=== PATIENT | female | born 1965 | race Hispanic/Latino ===

== ENCOUNTER 2020-06-07 16:04 | Inpatient (IN) | payer OTHER, SELFPAY ==
--- OUTSIDE RECORDS SUMMARY | 2020-06-07 16:07 | XMS REPORT | Continuity of Care Document ---
:1965 Author Organization [facility] t Address [address] [place] [address] Care Team Providers Name Role Phone Unavailable Unavailable Unavailable Problems This patient has no known problems. Allergies, Adverse Reactions, Alerts This patient has no known allergies or adverse reactions. Medications This patient has no known medications. Procedures This patient has no known procedures. Results Test Description Test Time Test Comments Results Result [facility] e Comments BREAST ULTRASOUND 2018-10-18 - DIAG MAMM BILATERAL BILATERAL 11:55:56 [place] CAD DIGITALBILATERAL DIGITAL DIAGNOSTIC MAMMOGRAM 3D/2D WITH CAD: 10/18/2018CLINICAL: Abnormal clinical breast exam. Digital breast tomosynthesis was performed in addition to routine CC and MLO views. Current mammographic images were evaluated by either a MagForce M-Vu or a [employer] ImageChecker CAD (computer aided detection system). No prior outside exams are currently available for comparison. The tissue of both breasts is heterogeneously dense. This may lower the sensitivity of mammography. There are benign calcifications in both breasts. There also is a benign intramammary node in the left breast. No suspicious mass, architectural distortion, malignant type calcification, or lymph node abnormality detected. INCOMPLETE ASSESSMENT: ADDITIONAL IMAGING EVALUATION RECOMMENDEDThere is no mammographic evidence of malignancy. An addendum will be issued if/when prior outside exams are made available for comparison.Ultrasound to follow.- BREAST ULTRASOUND BILATERALULTRASOUND OF BOTH BREASTS AND BOTH AXILLA: 10/18/2018No prior exams were available for comparison. Real-time ultrasound of the right breast and axilla and ultrasound of the left breast and axilla was performed. No abnormalities were seen sonographically in either axilla. No mass, focus of parenchymal distortion, or focus of abnormal posterior acoustic shadowing was imaged within either breast.There is slight retroareolar ductal prominence in the right breast. Mild duct dilatation is noted in the subareolar left breast. No intraductal mass or debris was imaged. IMPRESSION: BENIGN Benign findings. There is no sonographic evidence of malignancy. Resume annual screening mammography in one year. Yuriy Foster M.D. rb/:10/18/2018 11:55:56 Convention Planner: Amanda Geller [facility]-letter sent: BIRADS 1-2 Combo FU Letter Mammogram BI-RADS: 0 Indeterminate Ultrasound BI-RADS: 2 Benign DIAG MAMM 2018-10-18 - DIAG MAMM BILATERAL BILATERAL [place] CAD 11:55:56 [place] CAD DIGITAL DIGITALBILATERAL DIGITAL DIAGNOSTIC MAMMOGRAM 3D/2D WITH CAD: 10/18/2018CLINICAL: Abnormal clinical breast exam. Digital breast tomosynthesis was performed in addition to routine CC and MLO views. Current mammographic images were evaluated by either a [employer]Force M-Vu or a [employer] ImageChecker CAD (computer aided detection system). No prior outside exams are currently available for comparison. The tissue of both breasts is heterogeneously dense. This may lower the sensitivity of mammography. There are benign calcifications in both breasts. There also is a benign intramammary node in the left breast. No suspicious mass, architectural distortion, malignant type calcification, or lymph node abnormality detected. INCOMPLETE ASSESSMENT: ADDITIONAL IMAGING EVALUATION RECOMMENDEDThere is no mammographic evidence of malignancy. An addendum will be issued if/when prior outside exams are made available for comparison.Ultrasound to follow.- BREAST ULTRASOUND BILATERALULTRASOUND OF BOTH BREASTS AND BOTH AXILLA: 10/18/2018No prior exams were available for comparison. Real-time ultrasound of the right breast and axilla and ultrasound of the left breast and axilla was performed. No abnormalities were seen sonographically in either axilla. No mass, focus of parenchymal distortion, or focus of abnormal posterior acoustic shadowing was imaged within either breast.There is slight retroareolar ductal prominence in the right breast. Mild duct dilatation is noted in the subareolar left breast. No intraductal mass or debris was imaged. IMPRESSION: BENIGN Benign findings. There is no sonographic evidence of malignancy. Resume annual screening mammography in one year. Yuriy Foster M.D. rb/:10/18/2018 11:55:56 Convention Planner: Amanda Geller [facility]-FWletter sent: BIRADS 1-2 Combo FU Letter Mammogram BI-RADS: 0 Indeterminate Ultrasound BI-RADS: 2 Benign
[2020-06-07 16:44] LABS: Absolute Lymphocytes (CBC) 0.8 K/uL (0.7-4.9); Basophils % 0.4 % (0-1.3); Hematocrit 43.5 % (36.0-45.0); Lymphocytes % 7.6 % (15.3-44.8)
[2020-06-07 16:47] LABS: Protime INR 1.21
[2020-06-07] MEDS ORDERED: NA CHLORIDE 0.9% 250 ML ONE (16:54)
[2020-06-07] MEDS ORDERED: AZITHROMYCIN 500 MG INJ IVPB ONE (16:54)
[2020-06-07] MEDS ORDERED: CEFTRIAXONE/SWI 1gm 1 GM/10 ML SYR ONE (16:55)
[2020-06-07] MEDS ORDERED: NA CHLORIDE 0.9% 1,000 ML ONE (16:55)
--- NOTE | 2020-06-07 16:59 | ER ---
Nurse's Notes [facility] Name: Triny Juarez Age: 54 yrs Sex: Female : 1965 Arrival Date: 06/07/2020 Time: 16:13 Bed 2 Private MD: Alethea Chavez M Diagnosis: Dyspnea;Pneumonia due to other specified bacteria-bilateral focal;Hypoxemia;Fever, unspecified;SARS-associated coronavirus as the cause of diseases classified elsewhere Presentation: 06/07 16:14 Chief complaint: EMS states: pt POSITIVE COVID ON 05/30, PT CALLED EMS FOR SHORTNESS OF ls4 BREATH. PT IS TACHYCARDIC AND EMS STATES PT WAS 70 PERCENT ON ROOM AIR WHEN THEY ARRIVED ON SCENE. Coronavirus screen: Patient reports a cough. Patient reports shortness of breath or difficulty breathing. Patient denies measured and/or subjective temperature greater than 100.4F prior to today's visit. Patient denies travel on a cruise ship or to a country the [facility] currently lists as an affected area. Patient denies contact with known and/or suspected case of COVID-19. Patient instructed to continue to wear a mask when interacting with others. Patient moved to private room, placed in contact and droplet isolation with eye protection until further assessment. Prior COVID test collected on: 05/30 positive. Ebola Screen: No symptoms or risks identified at this time. Initial Sepsis Screen: Does the patient meet any 2 criteria? No. Patient's initial sepsis screen is negative. Does the patient have a suspected source of infection? No. Patient's initial sepsis screen is negative. Risk Assessment: Do you want to hurt yourself or someone else? Patient reports no desire to harm self or others. Onset of symptoms is unknown. 16:14 Method Of Arrival: EMS: [facility] ls4 16:14 Acuity: MAHESH 2 ls4 Triage Assessment: 16:18 General: Appears uncomfortable, Behavior is calm, cooperative. Pain:. Respiratory: ls4 Reports shortness of breath cough that is labored breathing Respiratory effort is labored, Respiratory pattern is regular, Onset: The symptoms/episode began/occurred gradually, the patient has severe shortness of breath. Historical: - Allergies: 16:18 No Known Allergies; ls4 - Home Meds: 16:18 None [Active]; ls4 - PMHx: 16:18 None; ls4 - PSHx: 16:18 Appendectomy; Cholecystectomy; Hysterectomy; ls4 - Immunization history:: Adult Immunizations up to date, Flu vaccine is not up to date. It has been more than one year since last vaccine. - Social history:: Smoking status: unknown. Screenin:28 Abuse screen: Denies threats or abuse. Denies injuries from another. Nutritional ls4 screening: No deficits noted. Tuberculosis screening: No symptoms or risk factors identified. Fall Risk None identified. Assessment: 16:43 General: Appears distressed, uncomfortable, obese, Behavior is calm, cooperative, bp appropriate for age. Pain: Complains of pain in back. Neuro: No deficits noted. Cardiovascular: Rhythm is SVT. Respiratory: Airway is patent Breath sounds are coarse bilaterally. GI: No signs and/or symptoms were reported involving the gastrointestinal system. : No signs and/or symptoms were reported regarding the genitourinary system. EENT: No deficits noted. Derm: No deficits noted. Musculoskeletal: No deficits noted. Vital Signs: 16:14 BP 163 / 91; Pulse 136; Resp 30; Temp 99.8(O); Pulse Ox 94% on R/A; Weight 82.55 kg; ls4 Height 5 ft. 4 in. (162.56 cm); Pain 5/10; 17:41 BP 146 / 90; Pulse 122; Resp 32; Pulse Ox 96% on 15% Non-rebreather mask; ls4 18:40 BP 156 / 98; Pulse 133; Resp 52; Temp 98.9(O); Pulse Ox 92% on 75% BiPAP; Pain 2/10; ls4 19:46 BP 140 / 85; Pulse 110; Temp 98.9; Pulse Ox 96% on BiPAP; mg2 16:14 Body Mass Index 31.24 (82.55 kg, 162.56 cm) ls4 ED Course: 16:13 Patient arrived in ED. ls4 16:14 Alethea Chavez MD is Private Physician. ls4 16:14 Alisia Giron, JHONNY is Primary Nurse. ls4 16:17 Triage completed. ls4 16:19 Arm band placed on right wrist. ls4 16:22 Romero Bunn MD is Attending Physician. [facility] 16:28 Patient has correct armband on for positive identification. Bed in low position. Call ls4 light in reach. Side rails up X 1. groundwater monitoring technician on. Pulse ox on. NIBP on. Verbal reassurance given. Diet: Patient is NPO. 16:28 No provider procedures requiring assistance completed. Patient maintains SpO2 ls4 saturation greater than 95% on room air. O2 via pt came in on nonrebreather, was at 100 per cent, trial room air pt is at 94 to 96 percent. 16:30 Initial lab(s) drawn, by [facility], sent to lab. First set of blood cultures drawn by , [facility] Second set of blood cultures drawn. 16:41 XRAY Chest (1 view) In Process Unspecified. EDMS 16:43 Primary Nurse role handed off by Alisia Giron, RN bp 16:43 Cosme Dominguez, RN is Primary Nurse. bp 16:43 Inserted saline lock: 18 gauge in right antecubital area, using aseptic technique. bp 16:43 EKG done, by ED staff, reviewed by Romero Bunn MD. ls4 16:57 Joe Carter MD is Hospitalizing Provider. elizabeth 16:58 Inserted saline lock: 22 gauge in right wrist, using aseptic technique. Blood collected.[facility] 16:59 Placed in gown. Side rails up X2. groundwater monitoring technician on. Pulse ox on. NIBP on. [facility] 17:01 Blood Culture Sent. 5 17:01 Procalcitonin Sent. 5 17:01 Lactate Sent. 5 17:01 Lactate Sent. [facility] 17:01 Procalcitonin Sent. [facility] 17:01 Blood Culture Adult (2) Sent. [facility] 17:01 Basic Metabolic Panel Sent. [facility] 17:01 LFT's Sent. [facility] 17:02 Magnesium Sent. [facility] 17:02 NT PRO-BNP Sent. [facility] 17:02 Troponin (emerg Dept Use Only) Sent. 5 Administered Medications: 16:55 Drug: NS 0.9% 1000 ml Route: IV; Rate: 125 ml/hr; Site: right forearm; ls4 17:10 Drug: Zithromax 500 mg Route: IVPB; Infused Over: 1 hrs; Site: right antecubital; ls4 17:10 Drug: Rocephin 1 grams Route: IV; Rate: per protocol; Site: right antecubital; ls4 17:10 Drug: SOLU-Medrol 125 mg Route: IVP; Site: right antecubital; ls4 17:10 Drug: Aspirin 162 mg Route: PO; ls4 17:10 Drug: Pepcid 20 mg Route: IVP; Site: right antecubital; ls4 17:10 Drug: Thiamine 100 mg Route: IV; Rate: 200 bolus; Site: right antecubital; ls4 19:46 Follow up: Response: No adverse reaction; IV Status: Completed infusion mg2 17:10 Drug: Tylenol 650 mg Route: PO; ls4 19:46 Follow up: Response: No adverse reaction mg2 17:20 Drug: Lovenox 80 mg Route: Sub-Q; Site: right lower abdomen; ls4 17:31 CANCELLED (Duplicate Order): NS 0.9% with KCl 20 mEq/L 1000 ml IV at 125 ml/hr elizabeth continuous 17:33 Drug: Potassium Effervescent Tablet 25 mEq Route: PO; ls4 19:46 Follow up: Response: No adverse reaction mg2 17:33 Drug: Potassium Chloride 20 mEq Route: IV; Rate: per protocol; Site: right antecubital; ls4 19:45 Follow up: Response: No adverse reaction; IV Status: Completed infusion mg2 18:10 Drug: Magnesium Sulfate 2 grams Route: IVPB; Infused Over: 2 hrs; Site: right ls4 antecubital; 18:24 Drug: NS 0.9% 500 ml Route: IV; Rate: bolus; Site: right antecubital; ls4 18:37 Follow up: IV Status: Completed infusion; IV Intake: 500ml ls4 18:50 Not Given (Duplicate Order): Potassium Chloride 20 mEq IV at per protocol once; elizabeth administer over 1-2 hours 18:54 CANCELLED (Duplicate Order): Ativan 0.5 mg IVP once ls4 18:54 CANCELLED (Duplicate Order): Ativan 0.5 mg IVP once ls4 18:55 Drug: Ativan 0.5 mg Route: IVP; Site: right antecubital; ls4 19:44 Follow up: Response: No adverse reaction mg2 18:55 Drug: NS 0.9% with KCl 20 mEq/L 1000 ml Route: IV; Rate: 125 ml/hr; Site: right ls4 antecubital; 19:44 Drug: Potassium Phosphate 15 mmol Route: IV; Rate: per protocol; Site: right hand; mg2 Intake: 18:37 IV: 500ml; Total: 500ml. ls4 Outcome: 16:59 Decision to Hospitalize by Provider. elizabeth 20:41 Patient left the ED. mg2 Signatures: Dispatcher [employer] EDRomero Garcia MD MD cha Martinez, Maria [facility] Cosme Dominguez RN RN Wili Jean RN RN mg2 Alisia Giron RN RN ls4 Corrections: (The following items were deleted from the chart) 18:22 16:14 Chief complaint: EMS states: pt POSITIVE COVID ON 05/30, PT CALLED EMS FOR ls4 SHORTNESS OF BREATH. PT IS TACHYCARDIC ls4
--- NOTE | 2020-06-07 16:59 | EDPHYS ---
Physician Documentation [facility] Name: Triny Juarez Age: 54 yrs Sex: Female : 1965 Arrival Date: 06/07/2020 Time: 16:13 Bed 2 Private MD: Alethea Chavez M ED Physician Romero Bunn HPI: 06/07 16:46 This 54 yrs old Female presents to ER via EMS with complaints of Shortness Of elizabeth Breath. 16:46 The patient has shortness of breath at rest, with light activity. Onset: The elizabeth symptoms/episode began/occurred 3 day(s) ago. Duration: The symptoms are continuous, and are steadily getting worse. The patient's shortness of breath is aggravated by coughing, exertion, light activity, supine position. Associated signs and symptoms: Pertinent positives: non-productive cough, fever. 16:47 The patient or guardian reports cough, difficulty breathing, flu symptoms, arthralgias, elizabeth low-grade fever, myalgias. Modifying factors: The symptoms are alleviated by nothing. the symptoms are aggravated by activity. Severity of symptoms: At their worst the symptoms were moderate in the emergency department the symptoms are unchanged. Associated signs and symptoms: Pertinent positives: rhinorrhea. Historical: - Allergies: 16:18 No Known Allergies; ls4 - Home Meds: 16:18 None [Active]; ls4 - PMHx: 16:18 None; ls4 - PSHx: 16:18 Appendectomy; Cholecystectomy; Hysterectomy; ls4 - Immunization history:: Adult Immunizations up to date, Flu vaccine is not up to date. It has been more than one year since last vaccine. - Social history:: Smoking status: unknown. ROS: 16:47 Eyes: Negative for injury, pain, redness, and discharge, ENT: Negative for injury, elizabeth pain, and discharge, Neck: Negative for injury, pain, and swelling, Abdomen/GI: Negative for abdominal pain, nausea, vomiting, diarrhea, and constipation, Back: Negative for injury and pain, : Negative for injury, bleeding, discharge, and swelling, MS/Extremity: Negative for injury and deformity, Skin: Negative for injury, rash, and discoloration, Neuro: Negative for headache, weakness, numbness, tingling, and seizure, Psych: Negative for depression, anxiety, suicide ideation, homicidal ideation, and hallucinations, Allergy/Immunology: Negative for hives, rash, and allergies, Endocrine: Negative for neck swelling, polydipsia, polyuria, polyphagia, and marked weight changes. 16:47 Constitutional: Positive for body aches, fatigue, fever, malaise. 16:47 Cardiovascular: Positive for palpitations. 16:47 Respiratory: Positive for cough, shortness of breath. Exam: 16:47 Constitutional: This is a well developed, well nourished patient who is awake, alert, elizabeth and in no acute distress. Head/Face: Normocephalic, atraumatic. Eyes: Pupils equal round and reactive to light, extra-ocular motions intact. Lids and lashes normal. Conjunctiva and sclera are non-icteric and not injected. Cornea within normal limits. Periorbital areas with no swelling, redness, or edema. ENT: Nares patent. No nasal discharge, no septal abnormalities noted. Tympanic membranes are normal and external auditory canals are clear. Oropharynx with no redness, swelling, or masses, exudates, or evidence of obstruction, uvula midline. Mucous membranes moist. Neck: Trachea midline, no thyromegaly or masses palpated, and no cervical lymphadenopathy. Supple, full range of motion without nuchal rigidity, or vertebral point tenderness. No Meningismus. Chest/axilla: Normal chest wall appearance and motion. Nontender with no deformity. No lesions are appreciated. Abdomen/GI: Soft, non-tender, with normal bowel sounds. No distension or tympany. No guarding or rebound. No evidence of tenderness throughout. Back: No spinal tenderness. No costovertebral tenderness. Full range of motion. Female : Normal external genitalia. Skin: Warm, dry with normal turgor. Normal color with no rashes, no lesions, and no evidence of cellulitis. MS/ Extremity: Pulses equal, no cyanosis. Neurovascular intact. Full, normal range of motion. Neuro: Awake and alert, GCS 15, oriented to person, place, time, and situation. Cranial nerves II-XII grossly intact. Motor strength 5/5 in all extremities. Sensory grossly intact. Cerebellar exam normal. Normal gait. Psych: Awake, alert, with orientation to person, place and time. Behavior, mood, and affect are within normal limits. 16:47 Cardiovascular: Rate: tachycardic, Rhythm: regular, Pulses: Pulses are 4+ in bilateral radial, brachial, femoral, popliteal, posterior tibial and and dorsalis pedis arteries.. Heart sounds: normal, Edema: is not appreciated, JVD: is not appreciated. 16:47 Respiratory: mild respiratory distress is noted, moderate respiratory distress is noted, Respirations: normal, no acute changes, Breath sounds: decreased breath sounds, rhonchi, Respiratory rate: 30 16:47 Musculoskeletal/extremity: DVT Exam: No signs of deep vein thrombosis. no pain, no swelling, no tenderness, negative Homans' sign noted on exam, no appreciated bluish discoloration, no erythema, no increased warmth. 17:01 ECG was reviewed by the Attending Physician. [facility] 17:49 ECG was reviewed by the Attending Physician. [facility] Vital Signs: 16:14 BP 163 / 91; Pulse 136; Resp 30; Temp 99.8(O); Pulse Ox 94% on R/A; Weight 82.55 kg; ls4 Height 5 ft. 4 in. (162.56 cm); Pain 5/10; 17:41 BP 146 / 90; Pulse 122; Resp 32; Pulse Ox 96% on 15% Non-rebreather mask; ls4 18:40 BP 156 / 98; Pulse 133; Resp 52; Temp 98.9(O); Pulse Ox 92% on 75% BiPAP; Pain 2/10; ls4 19:46 BP 140 / 85; Pulse 110; Temp 98.9; Pulse Ox 96% on BiPAP; mg2 16:14 Body Mass Index 31.24 (82.55 kg, 162.56 cm) ls4 MDM: 16:22 Patient medically screened. [facility] 16:50 Data reviewed: vital signs, nurses notes, lab test result(s), EKG, radiologic studies, [facility] plain films. 16:50 Differential diagnosis: Anxiety Reaction asthma, Bronchitis CHF exacerbation, Chronic elizabeth Obstructive Pulmonary Disease obstructed airway, flu, URI, pneumonia, pulmonary edema, reactive airway disease, Sepsis Unstable Angina. Antibiotic administration: Rocephin and Zithromax given. The patient's Wells Deep Vein Thrombosis Score was calculated as follows: Heart Rate >100 BPM (1.5 Pts) Imm/Surg in last 4 wks (1.5 Pts) Total Score: 3-6 Pts - Mod Risk. The patient's pulmonary embolism risk score was calculated as follows: the patients heart rate is greater than 100 beats per minute (1.5 Pts) patient has experienced immobilization or surgery in the last four weeks (1.5 Pts) Total Score: 3-6 points. This patient was found to be at moderate risk for a pulmonary embolism by using the Well's assessment criteria. Immunization status: Influenza vaccine: Data interpreted: logistics planning engineer: rate is 136 beats/min, Pulse oximetry: on 15% oxygen by non-rebreather, is 94 %. Test interpretation: by ED physician or midlevel provider: ECG, plain radiologic studies. Counseling: I had a detailed discussion with the patient and/or guardian regarding: the historical points, exam findings, and any diagnostic results supporting the discharge/admit diagnosis, the presence of at least one elevated blood pressure reading (>120/80) during this emergency department visit, lab results, radiology results, the need for further work-up and treatment in the hospital. ED course: pt without pain, pt improved. 06/07 16:20 Order name: Basic Metabolic Panel; Complete Time: 17:[address] [facility] 06/07 16:20 Order name: CBC with Diff [facility] 06/07 16:20 Order name: LFT's; Complete Time: 17:[address] [facility] 06/07 16:20 Order name: Magnesium; Complete Time: 17:[address] [facility] 06/07 16:20 Order name: NT PRO-BNP; Complete Time: 17:[address] [facility] 06/07 16:20 Order name: PT-INR; Complete Time: 16:[address] [facility] 06/07 16:20 Order name: Troponin (emerg Dept Use Only); Complete Time: 17:[address] [facility] 06/07 16:41 Order name: Blood Culture Adult (2) [facility] 06/07 16:41 Order name: Procalcitonin [facility] 06/07 16:41 Order name: Lactate [facility] 06/07 16:42 Order name: Blood Culture [facility] 06/07 16:42 Order name: Procalcitonin; Complete Time: 17:28 [facility] 06/07 16:42 Order name: Lactate; Complete Time: 17:55 [facility] 06/07 16:20 Order name: XRAY Chest (1 view); Complete Time: 17:[address] [facility] 06/07 17:20 Order name: Phosphorus; Complete Time: 17:30 [facility] 06/07 17:41 Order name: CT Chest For PE Angio [facility] 06/07 18:52 Order name: BIPAP [facility] 06/07 19:18 Order name: CT [facility] 06/07 19:51 Order name: CBC Smear Scan [facility] 06/07 20:29 Order name: Lactate Sepsis 2 HR Follow-up [facility] 06/07 16:20 Order name: EKG; Complete Time: 16:[address] [facility] 06/07 16:20 Order name: Cardiac monitoring; Complete Time: 16:[address] [facility] 06/07 16:20 Order name: EKG - Nurse/Tech; Complete Time: 16:[address] [facility] 06/07 16:20 Order name: IV Saline Lock; Complete Time: 16:[address] [facility] 06/07 16:20 Order name: Labs collected and sent; Complete Time: 16:[address] [facility] 06/07 16:20 Order name: O2 Per Protocol; Complete Time: 16:[address] [facility] 06/07 16:20 Order name: O2 Sat Monitoring; Complete Time: 16:[address] [facility] 06/07 17:32 Order name: EKG; Complete Time: 17:32 [facility] 06/07 17:32 Order name: EKG - Nurse/Tech; Complete Time: 17:58 [facility] EC:01 Rate is 133 beats/min. Rhythm is regular. QRS [place] is Normal. [place] interval is normal. [facility] QRS interval is normal. QT interval is normal. No Q waves. T waves are Normal. Clinical impression: Sinus tachycardia. Interpreted by me. Reviewed by me. 17:49 Rate is 118 beats/min. Rhythm is regular. QRS [place] is Normal. [place] interval is normal. [facility] QRS interval is normal. QT interval is normal. No Q waves. T waves are Normal. No ST changes noted. Clinical impression: NSR w/ Non-specific ST/T Changes and No evidence of ischemia. Interpreted by me. Reviewed by me. Administered Medications: 16:55 Drug: NS 0.9% 1000 ml Route: IV; Rate: 125 ml/hr; Site: right forearm; ls4 17:10 Drug: Zithromax 500 mg Route: IVPB; Infused Over: 1 hrs; Site: right antecubital; ls4 17:10 Drug: Rocephin 1 grams Route: IV; Rate: per protocol; Site: right antecubital; ls4 17:10 Drug: SOLU-Medrol 125 mg Route: IVP; Site: right antecubital; ls4 17:10 Drug: Aspirin 162 mg Route: PO; ls4 17:10 Drug: Pepcid 20 mg Route: IVP; Site: right antecubital; ls4 17:10 Drug: Thiamine 100 mg Route: IV; Rate: 200 bolus; Site: right antecubital; ls4 19:46 Follow up: Response: No adverse reaction; IV Status: Completed infusion mg2 17:10 Drug: Tylenol 650 mg Route: PO; ls4 19:46 Follow up: Response: No adverse reaction mg2 17:20 Drug: Lovenox 80 mg Route: Sub-Q; Site: right lower abdomen; ls4 17:31 CANCELLED (Duplicate Order): NS 0.9% with KCl 20 mEq/L 1000 ml IV at 125 ml/hr elizabeth continuous 17:33 Drug: Potassium Effervescent Tablet 25 mEq Route: PO; ls4 19:46 Follow up: Response: No adverse reaction mg2 17:33 Drug: Potassium Chloride 20 mEq Route: IV; Rate: per protocol; Site: right antecubital; ls4 19:45 Follow up: Response: No adverse reaction; IV Status: Completed infusion mg2 18:10 Drug: Magnesium Sulfate 2 grams Route: IVPB; Infused Over: 2 hrs; Site: right ls4 antecubital; 18:24 Drug: NS 0.9% 500 ml Route: IV; Rate: bolus; Site: right antecubital; ls4 18:37 Follow up: IV Status: Completed infusion; IV Intake: 500ml ls4 18:50 Not Given (Duplicate Order): Potassium Chloride 20 mEq IV at per protocol once; elizabeth administer over 1-2 hours 18:54 CANCELLED (Duplicate Order): Ativan 0.5 mg IVP once ls4 18:54 CANCELLED (Duplicate Order): Ativan 0.5 mg IVP once ls4 18:55 Drug: Ativan 0.5 mg Route: IVP; Site: right antecubital; ls4 19:44 Follow up: Response: No adverse reaction mg2 18:55 Drug: NS 0.9% with KCl 20 mEq/L 1000 ml Route: IV; Rate: 125 ml/hr; Site: right ls4 antecubital; 19:44 Drug: Potassium Phosphate 15 mmol Route: IV; Rate: per protocol; Site: right hand; mg2 Disposition: 06/07/20 16:59 Hospitalization ordered by Joe Carter for Inpatient Admission. Preliminary diagnosis are Dyspnea, Pneumonia due to other specified bacteria - bilateral focal, Hypoxemia, Fever, unspecified, SARS-associated coronavirus as the cause of diseases classified elsewhere. - Bed requested for Telemetry/MedSurg (Inpatient). - Status is Inpatient Admission. mg2 - Condition is Fair. - Problem is new. - Symptoms have improved. Signatures: Dispatcher [employer] EDMI Romero Bunn MD MD cha Attema, Lee, PLANNING AND ANALYSIS MANAGER-C PLANNING AND ANALYSIS MANAGER-Cla1 Shereen Lopez, JHONNY RN cg Wili Chowdary RN RN mg2 Alisia Giron RN RN ls4 Corrections: (The following items were deleted from the chart) 17:21 17:19 PHOSPHORUS+C.LAB.BRZ ordered. [facility] 17:31 17:19 NS 0.9% with KCl 20 mEq/L 1000 ml IV at 125 ml/hr continuous ordered. elizabeth elizabeth 18:54 18:51 Ativan 0.5 mg IVP once ordered. ls4 ls4 18:54 18:54 Ativan 0.5 mg IVP once ordered. ls4 ls4 19:26 16:59 Hospitalization Ordered by Joe Carter MD for Inpatient Admission. cg Preliminary diagnosis is Dyspnea; Pneumonia due to other specified bacteria - bilateral focal; Hypoxemia; Fever, unspecified; SARS-associated coronavirus as the cause of diseases classified elsewhere. Bed requested for Telemetry/MedSurg (Inpatient). Status is Inpatient Admission. Condition is Fair. Problem is new. Symptoms have improved. elizabeth 20:41 19:26 06/07/2020 16:59 Hospitalization Ordered by Joe Carter MD for Inpatient mg2 Admission. Preliminary diagnosis is Dyspnea; Pneumonia due to other specified bacteria - bilateral focal; Hypoxemia; Fever, unspecified; SARS-associated coronavirus as the cause of diseases classified elsewhere. Bed requested for Telemetry/MedSurg (Inpatient). Status is Inpatient Admission. Condition is Fair. Problem is new. Symptoms have improved. cg
[2020-06-07 17:10] LABS: ALT/SGPT 30 U/L (12-78); AST/SGOT 43 U/L (15-37); Albumin 2.5 g/dL (3.4-5.0); Alkaline Phosphatase 89 U/L (45-117); BUN Blood Urea Nitrogen 10 mg/dL (7-18); Bicarbonate 18 mmol/L (21-32); Bilirubin Direct 0.3 mg/dL (0-0.2); Glucose Level 107 mg/dL (74-106); Magnesium 2.3 mg/dL (1.8-2.4); NT PRO-BNP 699 pg/mL (<125); Protein, Total 7.7 g/dL (6.4-8.2); Sodium Level 142 mmol/L (136-145)
[2020-06-07 17:11] LABS: Potassium 2.5 mmol/L (3.5-5.1); Troponin (Emerg Dept Use Only) 0.85 ng/mL (0.0-0.045)
[2020-06-07] MEDS ORDERED: ACETAMINOPHEN 325 MG TABLET ONE (17:12)
[2020-06-07] MEDS ORDERED: THIAMINE 200 MG/2 ML INJ ONE (17:12)
[2020-06-07] MEDS ORDERED: ASPIRIN 81 MG CHEWABLE TABLET ONE (17:12)
[2020-06-07] MEDS ORDERED: FAMOTIDINE 20 MG/2 ML VIAL IV ONE (17:13)
[2020-06-07] MEDS ORDERED: Magnesium Sulfate 2gm IVPB 2 G/50 ML BAG IV ONE (17:13)
[2020-06-07] MEDS ORDERED: ENOXAPARIN 80 MG/0.8 ML SQ ONE (17:13)
[2020-06-07] MEDS ORDERED: METHYLPREDNISOLONE 125 MG INJ ONE (17:19)
[2020-06-07 17:30] LABS: Phosphorus 1.9 mg/dL (2.5-4.9)
--- NOTE | 2020-06-07 17:32 | RAD REPORT ---
EXAM DESCRIPTION: Jose Single View06/07/2020 4:41 pm CLINICAL HISTORY: sob COMPARISON: none FINDINGS: Mild bilateral pulmonary opacities The heart is normal size IMPRESSION: Mild bilateral pulmonary opacities probably pneumonia
[2020-06-07] MEDS ORDERED: POTASSIUM CL SA 10 MEQ TAB PO ONE (17:34)
[2020-06-07] MEDS ORDERED: NS KCL 20MEQ 1,000 ML IV ONE (17:35)
[2020-06-07] MEDS ORDERED: KCL 20 MEQ/100 mL IVPB 20 MEQ/100 ML BAG IV ONE (17:35)
[2020-06-07] MEDS ORDERED: POTASSIUM 25 MEQ EFFERV TAB ONE (17:56)
--- NOTE | 2020-06-07 18:50 | P.HP ---
Certification for Inpatient Patient admitted to: Inpatient With expected LOS: >2 Midnights Patient will require the following post-hospital care: None Practitioner: I am a practitioner with admitting privileges, knowledge of patient current condition, hospital course, and medical plan of care. Services: Services provided to patient in accordance with Admission requirements found in Title 42 Section 412.3 of the Code of Federal Regulations Patient History Date of Service: 06/07/20 Reason for admission: Acute respiratory failure, COVID History of Present Illness: 54-year-old female with no past medical history presents the emergency department for shortness of breath. Patient reports that she has been feeling ill since approximately 16 of May. Patient reports for the last 3-4 days she has been feeling very short of breath and especially today. EMS was called and patient was found to be around 80% on room air on scene. Patient placed on non- rebreather transport to the emergency department where she is evaluated. During her evaluation in the emergency department patient was found to be tachypneic with respiratory rate in the 50s. Patient placed on BiPAP all the emergency department. Patient found to have elevated troponin at 0.84, this was discussed with cardiology who did not believe this is ischemic. Patient having CT PE protocol while she is in the emergency department. Will admit for further evaluation management. Allergies No Known Allergies Allergy (Verified 03/28/16 14:52) Home Medications: Estradiol 2 mg PO DAILY 03/28/16 Progesterone,Micronized [Prometrium] 200 mg PO BEDTIME 03/28/16 - Past Medical/Surgical History -: None -: appendectomy -: Cholecystectomy -: Hysterectomy Psychosocial/ Personal History: Patient lives at home with the family. - Family History Family History: Reviewed- Non-Contributory - Social History Smoking Status: Never smoker Alcohol use: No CD- Drugs: No Caffeine use: No Place of Residence: Home Review of Systems 10-point ROS is otherwise unremarkable Respiratory: Cough, Dry, Shortness of Breath Physical Examination - Physical Exam General: Alert, In no apparent distress, Oriented x3 HEENT: Atraumatic, Normocephalic, PERRLA Neck: Supple Respiratory: Diminished, Crackles/rales, Other (Tachypneic/dyspnea) Cardiovascular: Normal pulses, Regular rate/rhythm, Normal S1 S2 Capillary refill: <2 Seconds Gastrointestinal: Normal bowel sounds, Soft and benign Musculoskeletal: No contractures, No erythema, No tenderness Integumentary: No significant lesion, No tenderness/swelling, No erythema Neurological: Normal speech, Normal strength at 5/5 x4 extr, Normal tone, Sensation intact - Studies Laboratory Data (last 24 hrs) 06/07/20 17:19: Phosphorus Cancelled 06/07/20 16:15: PT 14.2 H, INR 1.21 06/07/20 16:15: WBC 10.5, Hgb 14.8, Hct 43.5, Plt Count 263 06/07/20 16:15: Sodium 142, Potassium 2.5 L*, BUN 10, Creatinine 0.66, Glucose 107 H, Phosphorus 1.9 L, Magnesium 2.3, Total Bilirubin 1.0, AST 43 H, ALT 30, Alkaline Phosphatase 89 Assessment and Plan - Plan Assessment Acute respiratory failure with hypoxia secondary to COVID pneumonia Plan Acute respiratory failure with hypoxia secondary to COVID pneumonia: Patient p laced on BiPAP on the emergency department, continue with MATH protocol, pulmonology consulted to assist with care. Will continue with full anticoagulation with Lovenox. Anticipate clinical improvement in the next 48 to 72 hours. Patient very tachypneic while in the ED, hopefully she will improve with Bipap. Will load with steroids and supplements. Will upgrade to ICU if necessary. Discharge Plan: Home Plan to discharge in: Greater than 2 days - Advance Directives Does patient have a Living Will: No Does patient have a Durable POA for Healthcare: No - Code Status/Comfort Care Code Status Assessed: Yes (Patient is full code) Critical Care: No Time Spent Managing Pts Care (In Minutes): 55
[2020-06-07] MEDS ORDERED: LORazepam 2 MG/ML VIAL ONE (18:59)
[2020-06-07] MEDS ORDERED: POTASSIUM PHOS IN 0.9 % NACL 15 MMOL/250 ML BAG IV ONE (19:04)
--- NOTE | 2020-06-07 19:17 | RAD REPORT ---
EXAM DESCRIPTION: CT - Chest For Pe Angio - 06/07/2020 7:02 pm CLINICAL HISTORY: Chest pain COMPARISON: None. TECHNIQUE: Dynamically enhanced axial 3 mm thick images of the chest were obtained during administra tion of <100> mL Isovue 370 IV contrast. Coronal and oblique reconstruction images were generated and reviewed. Exam utilizes a protocol for optimal evaluation of pulmonary arterial tree. Maximum intensity projections 3D imaging was utilized All CT scans are performed using dose optimization technique as appropriate and may include automated exposure control or mA/KV adjustment according to patient size. FINDINGS: A pulmonary embolus is not seen. A thoracic aortic aneurysm is not noted. A pleural effusion is not seen. A pericardial effusion is not seen. Moderate ground-glass opacities within the lungs. Mild lower lobe consolidation IMPRESSION: Negative for a pulmonary embolism. Moderate ground-glass opacities within the lungs probably Covid pneumonia
[2020-06-07 19:51] LABS: Anisocytosis 1+; Blood Morphology Comment NOTED (NOT SEEN); Platelet Estimate ADEQ; Poikilocytosis 1+; Urine White Blood Cell Casts OK
[2020-06-07] MEDS ORDERED: ONDANSETRON 4 MG/2 ML VIAL IV PRN (20:56)
[2020-06-07] MEDS ORDERED: ACETAMINOPHEN 500 MG TAB PO PRN (20:56)
[2020-06-07] MEDS: METHYLPREDNISOLONE 40 MG INJ IV SCH (21:00)
[2020-06-07] MEDS: MELATONIN 3 MG TABLET PO SCH (21:45)
[2020-06-07] MEDS: ASCORBIC ACID 500 MG TABLET PO SCH (21:45)
[2020-06-08 00:05] VITALS: BMI 31.2
[2020-06-08] MEDS: ENOXAPARIN 80 MG/0.8 ML SQ SCH ×2 (04:09→16:16)
[2020-06-08 04:42] LABS: Urine Appearance CLEAR; Urine Blood 2+ (NEG); Urine Color DK YELLOW; Urine Glucose NEGATIVE (NEG); Urine Protein 2+ (NEG); Urine Specific Gravity >=1.030 (1.005-1.030); Urine Urobilinogen 0.2 mg/dL (0.2-1.0)
[2020-06-08 04:47] LABS: Urine Bilirubin NEGATIVE (NEG); Urine Microscopic Reflex ORDER UMIC
[2020-06-08 05:07] LABS: Urine Bacteria <20 /HPF (<20); Urine Culture Reflex Order NOT NEEDED; Urine RBC <5 /HPF (NONE SEEN)
[2020-06-08 05:54] LABS: Absolute Lymphocytes (CBC) 0.4 K/uL (0.7-4.9); Basophils % 0.2 % (0-1.3); Hematocrit 41.3 % (36.0-45.0); MPV 7.9 fL (7.6-11.3); RBC Red Blood Cell Count 4.59 M/uL (3.86-4.86)
[2020-06-08 06:15] LABS: BUN Blood Urea Nitrogen 14 mg/dL (7-18); Bicarbonate 18 mmol/L (21-32); Ferritin 905.8 ng/mL (8-388); Glucose Level 142 mg/dL (74-106); HDL Cholesterol 30 mg/dL (40-60); LDL Cholesterol, Calculated 70 (<130); Phosphorus 2.6 mg/dL (2.5-4.9); Potassium 3.5 mmol/L (3.5-5.1); Sodium Level 145 mmol/L (136-145); Thyroid Stimulating Hormone 0.813 uIU/mL (0.360-3.740)
[2020-06-08] MEDS ORDERED: POTASSIUM CL SA 10 MEQ TAB PO ONE (07:00)
[2020-06-08] MEDS: VITAMIN D 1000 UNIT TAB PO SCH (07:45)
[2020-06-08] MEDS: METHYLPREDNISOLONE 40 MG INJ IV SCH ×2 (07:45→19:36)
[2020-06-08] MEDS: THIAMINE 200 MG/2 ML INJ IVP SCH (07:45)
[2020-06-08] MEDS: ASCORBIC ACID 500 MG TABLET PO SCH ×3 (07:45→19:37)
[2020-06-08] MEDS: ZINC SULFATE 220 MG CAP PO SCH (07:47)
[2020-06-08] MEDS ORDERED: FUROSEMIDE 20 MG TABLET PO SCH (09:00)
--- NOTE | 2020-06-08 10:51 | P.PN ---
Subjective Date of Service: 06/08/20 Chief Complaint: Acute respiratory failure, COVID Subjective: Improving <Johnathan Pritchard - Last Filed: 06/08/20 10:52> Date of Service: 06/08/20 <Dread Barney - Last Filed: 06/08/20 15:20> Review of Systems Respiratory: Shortness of Breath <Johnathan Pritchard - Last Filed: 06/08/20 10:52> Physical Examination - Vital Signs Temperature: 97.0 F Blood Pressure: 152/96 Pulse: 108 Respirations: 49 Pulse Ox (%): 94 - Physical Exam General: Alert, In no apparent distress, Oriented x3 HEENT: Atraumatic, Normocephalic Neck: Supple Respiratory: Other (Coarse bilaterally with significant tachypnea) Cardiovascular: No edema, Normal pulses, Normal S1 S2 Capillary refill: <2 Seconds Gastrointestinal: Normal bowel sounds, Soft and benign Musculoskeletal: No contractures, No erythema Integumentary: No tenderness/swelling, No erythema, No warmth Neurological: Normal gait, Normal speech, Normal tone - Studies Laboratory Data (last 24 hrs) 06/07/20 17:19: Phosphorus Cancelled 06/07/20 16:15: PT 14.2 H, INR 1.21 06/07/20 16:15: WBC 10.5, Hgb 14.8, Hct 43.5, Plt Count 263 06/07/20 16:15: Sodium 142, Potassium 2.5 L*, BUN 10, Creatinine 0.66, Glucose 107 H, Phosphorus 1.9 L, Magnesium 2.3, Total Bilirubin 1.0, AST 43 H, ALT 30, Alkaline Phosphatase 89 <Johnathan Pritchard - Last Filed: 06/08/20 10:52> - Studies Laboratory Data (last 24 hrs) 06/07/20 17:19: Phosphorus Cancelled 06/07/20 16:15: PT 14.2 H, INR 1.21 06/07/20 16:15: WBC 10.5, Hgb 14.8, Hct 43.5, Plt Count 263 06/07/20 16:15: Sodium 142, Potassium 2.5 L*, BUN 10, Creatinine 0.66, Glucose 107 H, Phosphorus 1.9 L, Magnesium 2.3, Total Bilirubin 1.0, AST 43 H, ALT 30, Alkaline Phosphatase 89 <Dread Barney - Last Filed: 06/08/20 15:20> Assessment & Plan Discharge Plan: Home Plan to discharge in: Greater than 2 days - Code Status/Comfort Care Code Status Assessed: Yes (Patient is full code) Physician Review Additional Text: Assessment Acute respiratory failure with hypoxia secondary to COVID pneumonia Elevated troponin level Hypophosphatemia Hypokalemia Plan Acute respiratory failure with hypoxia secondary to COVID pneumonia: Patient placed on BiPAP and is doing well with this, continue with MATH protocol, pulmonology consulted to assist with care. Will continue with full anticoagulation with Lovenox. Anticipate clinical improvement in the next 48 to 72 hours. Continue steroids, supplements, cardiology recommends adding aspirin 81 mg once daily. Elevated troponin level: Cardiology has been consulted and seen patient, recommend echo at this time, trop peaked and is coming down. Patient is chest pain free. Plan will be for possible angiogram once she is more stable. Will also add statin. Hypophosphatemia: Phosphate protocol and place Hypokalemia: Potassium protocol in place Critical Care: No Time Spent Managing Pts Care (In Minutes): 55 <Johnathan Pritchard - Last Filed: 06/08/20 10:52> Physician Review Additional Text: Patient was seen and examined and findings were discussed Agree with the assessment and plan as documented by the BERNY <Dread Barney - Last Filed: 06/08/20 15:20>
--- NOTE | 2020-06-08 13:00 | CON ---
Date of Consultation: 06/08/2020 Reason For Consultation: Elevated troponin. History Of Present Illness: This is a 54-year-old female, no medical history, presented with shortne ss of breath, cough since the beginning of this month. Symptoms worsened about 3 to 4 days prior to admission with significant shortness of breath. By EMS, she was found to be saturating 80% on room a ir and on non-rebreather the patient felt much better, and she was admitted, found to be positive for COVID-19, started on BiPAP and did well. Past Medical History: None. Medications: None. Allergies: NO KNOWN DRUG ALLERGIES. Past Surgical History: Appendectomy, cholecystectomy, hysterectomy. Social History: Does not smoke or drink. Does not use any drugs. Family History: No mention of coronary artery disease or cancer. Review of Systems: All systems reviewed and they were negative except for mentioned in the HPI. Physical Examination: Vital Signs: Temperature 97.0, pulse 108, breathing at 18, blood pressure is 152/96, saturating 95% with nasal cannula. General: This is a middle-aged female, pleasant, no distress. Head and Neck: Pupils are equal, react to light. Intact eye movements. No JVD. No cervical. Neck: Supple. Thyroid is not enlarged. Lungs: Rhonchi bilaterally. No accessory muscle use or muscle retraction. Heart: Regular rate and rhythm. No extra sounds. Abdomen: Soft, nontender. Bowel sounds positive. No organomegaly. No masses or hernia. No rigidi ty or rebound. Extremities: No edema, clubbing, cyanosis. Intact pulses. Skin: No rashes. Neurologic: Alert, awake, oriented x3. No acute focal deficits appreciated. Lymph nodes: No cervical, axillary lymphadenopathy. Investigations: Sodium 145, creatinine is 0.62. Troponin peaked at 2.17, now down to 1.98. Lactic acid was 2.3 and then 1.9. White blood cell count 6.3, hemoglobin 14, platelet count 227. Assessment And Plan: 1.Elevated troponin suggestive of non-elevation myocardial infarction. However, this could be relat ed to COVID-19 and demand ischemia plus possibility of mild myocarditis. However, at this point, I w ill recommend baby aspirin 81 mg daily and oxygen therapy and full anticoagulation with Lovenox 1 mg/ kg subcu q.12 hours and obtain echocardiogram with the tentative plan to do coronary angiogram once t he patient's condition is more stable. 2.COVID-19 induced pneumonia, on the proper therapy. Continue current management as per armida ALANIS Voice ID: [id number] Report ID: [id number]
[2020-06-08] MEDS: MELATONIN 3 MG TABLET PO SCH (19:37)
[2020-06-08] MEDS ORDERED: ATORVASTATIN 40 MG TAB PO SCH (21:00)
[2020-06-09] MEDS ORDERED: AZITHROMYCIN IV 500 MG in NA CHLORIDE 0.9% 250 ML IVPB ONE (01:48)
[2020-06-09] MEDS ORDERED: ALBUMIN HUMAN 25% 50 ML IV ONE (01:49)
[2020-06-09] MEDS ORDERED: ALBUTEROL INHALER 60 PUFF/8 GM IH PRN (01:50)
[2020-06-09] MEDS: FUROSEMIDE 40 MG/4 ML VIAL IV SCH ×3 (02:40→16:00)
[2020-06-09] MEDS: dexAMETHasone 10 MG/ML VIAL IV SCH ×2 (02:40→06:10)
[2020-06-09] MEDS ORDERED: NA CHLORIDE 0.9% 250 ML ONE (02:47)
[2020-06-09] MEDS: ENOXAPARIN 80 MG/0.8 ML SQ SCH ×2 (03:44→16:01)
[2020-06-09] MEDS ORDERED: AZITHROMYCIN 500 MG INJ IVPB ONE (03:50)
[2020-06-09 05:12] LABS: Absolute Lymphocytes (CBC) 0.5 K/uL (0.7-4.9); Basophils % 0.1 % (0-1.3); Hematocrit 39.4 % (36.0-45.0); Lymphocytes % 5.2 % (15.3-44.8); MPV 8.3 fL (7.6-11.3); RBC Red Blood Cell Count 4.49 M/uL (3.86-4.86)
[2020-06-09 05:26] LABS: Magnesium 2.4 mg/dL (1.8-2.4)
[2020-06-09 05:30] LABS: BUN Blood Urea Nitrogen 19 mg/dL (7-18); Bicarbonate 22 mmol/L (21-32); Ferritin 804.4 ng/mL (8-388); Glucose Level 139 mg/dL (74-106); Phosphorus 2.2 mg/dL (2.5-4.9); Potassium 3.2 mmol/L (3.5-5.1); Sodium Level 143 mmol/L (136-145)
[2020-06-09] MEDS: ASPIRIN EC 81 MG TAB PO SCH (08:06)
[2020-06-09] MEDS: ASCORBIC ACID 500 MG TABLET PO SCH ×3 (08:06→21:14)
[2020-06-09] MEDS: ZINC SULFATE 220 MG CAP PO SCH (08:06)
[2020-06-09] MEDS: POTASS/SODIUM PHOSPHATE 1 PKT POWD.PACK PO SCH ×3 (08:06→09:43)
[2020-06-09] MEDS: THIAMINE 200 MG/2 ML INJ IVP SCH ×2 (08:08→21:14)
[2020-06-09] MEDS: VITAMIN D 1000 UNIT TAB PO SCH (08:11)
--- NOTE | 2020-06-09 08:12 | ECHO ---
HEIGHT: 5 ft 4 in WEIGHT: 182 lb 0 oz DATE OF STUDY: 06/08/[address]: Johnathan Pritchard NP 2-DIMENSIONAL: YES M.MODE: YES DOPPLER: YES COLOR FLOW: YES TDS: NO PORTABLE: NO DEFINITY: NO BUBBLE STUDY: NO DIAGNOSIS: ELEVATED TROPONIN CARDIAC HISTORY: CATHERIZATION: NO SURGERY: NO PROSTHETIC VALVE: NO PACEMAKER: NO MEASUREMENTS (cm) DIASTOLIC (NORMALS) SYSTOLIC (NORMALS) IVSd 1.1 (0.6-1.2) LA Diam 2.8 (1.9-4.0) LVEF 50% LVIDd 3.7 (3.5-5.7) LVIDs 2.8 (2.0-3.5) %FS 25% LVPWd 1.1 (0.6-1.2) Ao Diam 2.9 (2.0-3.7) 2 DIMENSIONAL ASSESSMENT: RIGHT ATRIUM: LEFT ATRIUM: RIGHT VENTRICLE: LEFT VENTRICLE: TRICUSPID VALVE: MITRAL VALVE: PULMONIC VALVE: AORTIC VALVE: PERICARDIAL EFFUSION: AORTIC ROOT: LEFT VENTRICULAR WALL MOTION: DOPPLER/COLOR FLOW: COMMENTS: VERY POOR WINDOWS BUT LEFT VENTRICULAR EJECTION FRACTION APPEARS NORMAL, HYPERDYNAMIC. RECOMMEND REPEAT STUDY WERE HEART RATE IS SLOWER. TECHNOLOGIST: Jones MALIK
[2020-06-09] MEDS ORDERED: METHYLPREDNISOLONE 125 MG INJ IV SCH (09:00)
[2020-06-09] MEDS ORDERED: POTASSIUM CL SA 10 MEQ TAB PO ONE ×2 (09:00→19:00)
[2020-06-09] MEDS ORDERED: DULERA 100/5 (MOMETASONE/FORMOTEROL) INHALER IH SCH (09:00)
--- NOTE | 2020-06-09 13:39 | P.PN ---
Subjective Date of Service: 06/09/20 Chief Complaint: Acute respiratory failure, COVID Subjective: No new changes, Improving Review of Systems 10-point ROS is otherwise unremarkable Physical Examination - Vital Signs Temperature: 97.5 F Blood Pressure: 140/92 Pulse: 115 Respirations: 25 Pulse Ox (%): 96 - Physical Exam General: Alert, Mild distress HEENT: Atraumatic, Normocephalic Neck: Supple Respiratory: Diminished, Crackles/rales Cardiovascular: Regular rate/rhythm, Normal S1 S2 Capillary refill: <2 Seconds Gastrointestinal: Soft and benign, W/out hepatosplenomegaly Musculoskeletal: No clubbing, No swelling Integumentary: No rashes, No significant lesion Neurological: Normal speech, Normal strength at 5/5 x4 extr Lymphatics: No axilla or inguinal lymphadenopathy Assessment & Plan Physician Review Additional Text: Assessment Acute respiratory failure with hypoxia secondary to COVID pneumonia Elevated troponin level Hypophosphatemia Hypokalemia Plan Acute respiratory failure with hypoxia secondary to COVID pneumonia: Was on BiPAP Will try to wean down oxygen requirement continue with MATH protocol Appreciate help from pulmonology continue with full anticoagulation with Lovenox. Continue steroids and supplements Anticipate clinical improvement in the next 48 to 72 hours. Elevated troponin level: Appreciate help from cardiology Trended cardiac enzymes Add aspirin and statin Hypophosphatemia: Phosphate protocol Hypokalemia: Potassium protocol Hypertension Continue with antihypertensives Titrate as needed Time Spent Managing Pts Care (In Minutes): 42
[2020-06-09] MEDS ORDERED: METHYLPREDNISOLONE 125 MG INJ IV ONE (14:00)
--- NOTE | 2020-06-09 16:39 | P.CNS ---
Date of Consult: 06/09/20 Reason for Consult: Respiratory failure from nayak virus Chief Complaint: Acute respiratory failure, COVID History of Present Illness: Patient is 54 years of age admitted with shortness of breath as been feeling ill since May 16 progressive shortness of breath was found to be hypoxic admitted with pneumonia due to nayak virus she patient is improving Allergies No Known Allergies Allergy (Verified 06/07/20 21:33) Home Medications: NK [No Home Meds] 06/07/20 - Past Medical/Surgical History Diabetic: No -: None -: appendectomy -: Cholecystectomy -: Hysterectomy Psychosocial/ Personal History: Patient lives at home with the family. - Social History Smoking Status: Unknown if ever smoked Alcohol use: No CD- Drugs: No Caffeine use: No Place of Residence: Home Physical Examination Temp Pulse Resp BP Pulse Ox 97.5 F 98 H 25 H 145/87 H 96 06/09/20 13:39 06/09/20 16:00 06/09/20 13:39 06/09/20 16:00 06/09/20 13:39 - Problems (1) Respiratory failure Current Visit: Yes Status: Acute Plan: Patient is 54 years of age admitted with respiratory failure secondary to nayak virus is doing better saturation is also satisfactory D-dimer is declining still very high chemistries reviewed IV increase the steroids S patient CRP still very high evaluate for home oxygen patient is self-pay Qualifiers: Chronicity: acute (2) Coronavirus infection Current Visit: Yes Status: Acute
[2020-06-09] MEDS ORDERED: HYDRALAZINE HCL 20 MG/ML VIAL IV PRN (18:09)
[2020-06-09] MEDS ORDERED: AZITHROMYCIN IV 250 MG in NA CHLORIDE 0.9% 250 ML IVPB SCH (21:00)
[2020-06-09] MEDS ORDERED: ATORVASTATIN 40 MG TAB PO SCH (21:00)
[2020-06-09] MEDS: MELATONIN 3 MG TABLET PO SCH (21:14)
[2020-06-09] MEDS: METHYLPREDNISOLONE 125 MG INJ IV SCH (21:15)
[2020-06-10] MEDS: FUROSEMIDE 40 MG/4 ML VIAL IV SCH ×3 (00:56→16:51)
[2020-06-10] MEDS ORDERED: POTASSIUM CL SA 10 MEQ TAB PO ONE (05:00)
[2020-06-10] MEDS: ENOXAPARIN 80 MG/0.8 ML SQ SCH (05:16)
[2020-06-10 05:41] LABS: Absolute Lymphocytes (CBC) 0.5 K/uL (0.7-4.9); Basophils % 0.2 % (0-1.3); MPV 8.8 fL (7.6-11.3); RBC Red Blood Cell Count 4.36 M/uL (3.86-4.86)
[2020-06-10 06:13] LABS: Ferritin 673.1 ng/mL (8-388); Phosphorus 3.1 mg/dL (2.5-4.9); Potassium 3.8 mmol/L (3.5-5.1)
[2020-06-10] MEDS: METHYLPREDNISOLONE 125 MG INJ IV SCH (09:04)
[2020-06-10] MEDS: ZINC SULFATE 220 MG CAP PO SCH (09:04)
[2020-06-10] MEDS: ASCORBIC ACID 500 MG TABLET PO SCH ×2 (09:04→14:13)
[2020-06-10] MEDS: ASPIRIN EC 81 MG TAB PO SCH (09:04)
[2020-06-10] MEDS: VITAMIN D 1000 UNIT TAB PO SCH (09:04)
[2020-06-10] MEDS: THIAMINE 200 MG/2 ML INJ IVP SCH (09:10)
--- NOTE | 2020-06-10 12:10 | P.DS ---
Admission Date: 06/07/20 Discharge Date: 06/11/20 Disposition: ROUTINE DISCHARGE Discharge Condition: FAIR Reason for Admission: Acute respiratory failure, COVID Brief History of Present Illness: 54-year-old female with no past medical history presents the emergency department for shortness of breath. Patient reports that she has been feeling ill since approximately 16 of May. Patient reports for the last 3-4 days she has been feeling very short of breath and especially today. EMS was called and patient was found to be around 80% on room air on scene. Patient placed on non- rebreather transport to the emergency department where she is evaluated. During her evaluation in the emergency department patient was found to be tachypneic with respiratory rate in the 50s. Patient placed on BiPAP all the emergency department. Patient found to have elevated troponin at 0.84, this was discussed with cardiology who did not believe this is ischemic. Patient having CT PE protocol while she is in the emergency department. Will admit for further evaluation management. Hospital Course: Acute respiratory failure with hypoxia secondary to COVID pneumonia Elevated troponin level Hypophosphatemia Hypokalemia Plan Acute respiratory failure with hypoxia secondary to COVID pneumonia: Was on BiPAP , weaned down oxygen requirement continue with MATH protocol Appreciate help from pulmonology treated with steroids and supplements along with full anticoagulation with Lovenox. Elevated troponin level: Appreciate help from cardiology Trended cardiac enzymes Added aspirin and statin Electrolytes were monitored and replaced antihypertensives were titrated case management consult for home O2 oxygen Patient wanted go home and is being discharged home today in a stable condition with advice to follow up with PCP in 1 week and also with pulmonology in 1-2 weeks Vital Signs/Physical Exam: Temp Pulse Resp BP Pulse Ox 98.1 F 98 H 24 H 148/89 H 91 06/10/20 08:00 06/10/20 09:05 06/10/20 08:00 06/10/20 09:05 06/10/20 08:00 General: Alert, In no apparent distress HEENT: Atraumatic, Normocephalic Neck: Supple Respiratory: Normal air movement, Crackles/rales Cardiovascular: Normal pulses, Regular rate/rhythm Capillary refill: <2 Seconds Gastrointestinal: Soft and benign Musculoskeletal: No clubbing Integumentary: No rashes Neurological: Normal speech, Normal strength at 5/5 x4 extr Lymphatics: No axilla or inguinal lymphadenopathy Laboratory Data at Discharge: WBC 6.8 K/uL (4.3-10.9) D 06/10/20 05:00 Hgb 13.3 g/dL (12.0-15.0) 06/10/20 05:00 Hct 39.0 % (36.0-45.0) 06/10/20 05:00 Plt Count 315 K/uL (152-406) 06/10/20 05:00 PT 14.2 SECONDS (9.5-12.5) H 06/07/20 16:15 INR 1.21 06/07/20 16:15 Sodium 145 mmol/L (136-145) 06/10/20 05:00 Potassium 3.8 mmol/L (3.5-5.1) 06/10/20 05:00 BUN 22 mg/dL (7-18) H 06/10/20 05:00 Creatinine 0.74 mg/dL (0.55-1.3) 06/10/20 05:00 Glucose 139 mg/dL (74-106) H 06/10/20 05:00 Phosphorus 3.1 mg/dL (2.5-4.9) 06/10/20 05:00 Magnesium 2.4 mg/dL (1.8-2.4) 06/09/20 05:01 Total Bilirubin 1.0 mg/dL (0.2-1.0) 06/07/20 16:15 AST 43 U/L (15-37) H 06/07/20 16:15 ALT 30 U/L (12-78) 06/07/20 16:15 Alkaline Phosphatase 89 U/L (45-117) 06/07/20 16:15 Troponin I 1.63 ng/mL (0.0-0.045) H* 06/08/20 11:15 Triglycerides 189 mg/dL (<150) H 06/08/20 05:23 Cholesterol 138 mg/dL (<200) 06/08/20 05:23 HDL Cholesterol 30 mg/dL (40-60) L 06/08/20 05:23 Cholesterol/HDL Ratio 4.60 06/08/20 05:23 Home Medications: Albuterol Inhaler [Ventolin Inhaler*] 2 puff IH Q6H PRN #1 hfa.aer.ad 06/10/20 Apixaban [Eliquis] 5 mg PO BID #14 tab.ds.pk 06/10/20 Ascorbic Acid [Vitamin C*] 500 mg PO TID #30 tablet 06/10/20 Atorvastatin Calcium [Lipitor] 40 mg PO BEDTIME #30 tab 06/10/20 Cholecalciferol (Vitamin D3) [Vitamin D 1000 Iu Tab*] 2,000 unit PO DAILY #10 tab 06/10/20 Furosemide [Lasix] 20 mg PO BID #20 tablet 06/10/20 Melatonin [Melatonin*] 3 mg PO BEDTIME #10 tablet 06/10/20 predniSONE [Prednisone] 20 mg PO BID #14 tablet 06/10/20 New Medications: Apixaban [Eliquis] 5 mg PO BID #14 tab.ds.pk Furosemide [Lasix] 20 mg PO BID #20 tablet Atorvastatin Calcium [Lipitor] 40 mg PO BEDTIME #30 tab Melatonin [Melatonin*] 3 mg PO BEDTIME #10 tablet predniSONE [Prednisone] 20 mg PO BID #14 tablet Albuterol Inhaler [Ventolin Inhaler*] 2 puff IH Q6H PRN #1 hfa.aer.ad PRN Reason: Shortness Of Breath Ascorbic Acid [Vitamin C*] 500 mg PO TID #30 tablet Cholecalciferol (Vitamin D3) [Vitamin D 1000 Iu Tab*] 2,000 unit PO DAILY #10 tab Followup: Joe Carter MD [ACTIVE - CAN ADMIT] - (call to schedule appointment) Physician Review: Patient Assessed, Agree with Above Assessment and Plan Time spent managing pt's care (in minutes): 42
[2020-06-10 13:44] VITALS: BP 149/90; TEMP 97.4
[2020-06-10 16:26] VITALS: O2SAT 92
--- NOTE | 2020-06-10 16:29 | P.PN ---
Subjective Date of Service: 06/10/20 Chief Complaint: Acute respiratory failure, COVID Subjective: Improving (Patient is doing much better on nasal cannula oxygen no other complaints) Physical Examination - Vital Signs Temperature: 97.4 F Blood Pressure: 149/90 Pulse: 103 Respirations: 20 Pulse Ox (%): 97 Assessment & Plan - Problems (Diagnosis) (1) Respiratory failure Current Visit: Yes Status: Acute Plan: Patient admitted with respiratory failure due to nayak virus doing much better on nasal cannula oxygen C-reactive protein is declined to 37 chemistries CBC reviewed plan to discharge on prednisone 20 mg twice a day low-dose anticoagulation multi vitamin supplements to have a telephone visit with me in 1 week Qualifiers: Chronicity: acute (2) Coronavirus infection Current Visit: Yes Status: Acute Physician Review Additional Text: Assessment Acute respiratory failure with hypoxia secondary to COVID pneumonia Elevated troponin level Hypophosphatemia Hypokalemia Plan Acute respiratory failure with hypoxia secondary to COVID pneumonia: Was on BiPAP Will try to wean down oxygen requirement continue with MATH protocol Appreciate help from pulmonology continue with full anticoagulation with Lovenox. Continue steroids and supplements Anticipate clinical improvement in the next 48 to 72 hours. Elevated troponin level: Appreciate help from cardiology Trended cardiac enzymes Add aspirin and statin Hypophosphatemia: Phosphate protocol Hypokalemia: Potassium protocol Hypertension Continue with antihypertensives Titrate as needed
== END 2020-06-10 17:35 | disposition home or self-care (01) | DRG 177 ==
LOC: ER 16:04 → ERHOLD 18:35 → 4TH 20:22
PROVIDERS: ADMIT Internal Medicine Sleep Medicine; ATTEND Family Medicine
PROC: 8E0ZXY6 Isolation (ICD-10-PCS; principal; 2020-06-07)
DX: U07.1 COVID-19 (principal); J12.89 Other viral pneumonia; J96.01 Acute respiratory failure with hypoxia; I21.A1 Myocardial infarction type 2; R79.89 Other specified abnormal findings of blood chemistry; E83.39 Other disorders of phosphorus metabolism; E87.6 Hypokalemia; I10 Essential (primary) hypertension; Z90.49 Acquired absence of other specified parts of digestive tract; Z90.710 Acquired absence of both cervix and uterus
CPT/HCPCS: 36415; 71045; 71275; 80048; 80061; 80076; 81003; 81015; 82728; 83605; 83615; 83735; 83880; 84100; 84132; 84145; 84439; 84443; 84484; 85025; 85379; 85610; 86140; 87040; 93005; 93306; 94660; 94760; 96365; 96366; 96368; 96372; 96375; 99285; J0456; J0696; J1100; J1940; J2920; J2930; J3411; J3475; J3480; J7030; J7050; J7606; P9047; Q9967